=== PATIENT | female | born 1970 ===

== ENCOUNTER 2017-08-12 10:38 | Day surgery (SDC) | payer OTHER ==
[2017-08-05 07:49] VITALS: BMI 27.8
[2017-08-12 11:55] LABS: BASO # 0.02 [, K/mm3] (0.0-2.0); BASO % 0.4 % (0.0-3.0); BLOOD UREA NITROGEN 16 mg/dL (7-21); CALCIUM 9.2 mg/dL (8.4-10.5); EOS # 0.1 (0.0-0.7); GFR AFRICAN-AMERICAN > 60; GFR NON-AFRICAN AMERICAN > 60; GRAN # 2.9 (1.4-6.5); GRAN % 60.5 % (50.0-68.0); LYMPH # 1.5 (1.2-3.4); MEAN CELL VOLUME 66.5 fl (80.0-105.0); MEAN CORPUSCULAR HEMOGLOBIN 19.9 pg (25.0-35.0); MEAN CORPUSCULAR HGB CONC 29.9 g/dl (31.0-37.0); MEAN PLATELET VOLUME 8.6 fl (7.0-11.0); MONO # 0.3 (0.1-0.6); MONO % 7.1 % (1.0-6.0); RBC 4.03 [, 10^6/uL] (3.5-6.1); RED CELL DISTRIBUTION WIDTH 15.9 % (11.5-14.5); WHITE BLOOD COUNT 4.8 [, 10^3/ul] (4.5-11.0)
[2017-08-12 12:01] LABS: INR 0.99 (0.93-1.08); PARTIAL THROMBOPLASTIN TIME 28.7 Seconds (25.1-36.5); PROTHROMBIN TIME 11.3 SECONDS (9.4-12.5)
[2017-08-12] MEDS ORDERED: ceFAZolin 1 gm in NS 1 GM/100 ML BAG IVPB STA (12:04)
[2017-08-12] MEDS ORDERED: Iodixanol 320 MG/ML 200 ML BOTTLE IV ONE (13:15)
[2017-08-12] MEDS ORDERED: Iodixanol 320 mg/ml 150 ml Bottle IV ONE (13:15)
[2017-08-12] MEDS ORDERED: Midazolam 2 MG/2 ML VIAL ONE (13:27)
[2017-08-12] MEDS ORDERED: Iodixanol 320 MG/ML 100 ML BOTTLE IV ONE (14:40)
[2017-08-12] MEDS ORDERED: Oxycodone/Acetaminophen 5/325 mg Tab PO PRN (15:20)
[2017-08-12] MEDS ORDERED: HYDROmorphone 2 mg/ml ISec IVP PRN (15:23)
[2017-08-12] MEDS: Sodium Chloride 0.45% 1,000 ML IV SCH (17:00)
--- NOTE | 2017-08-12 19:39 | VASCULAR ---
PROCEDURE: Uterine fibroid embolization. CLINICAL HISTORY: Sub mucosal fibroid. Menorrhagia. Needs uterine artery embolization. PHYSICIAN(S): Zaheer Castañeda MD. TECHNIQUE: The relative risks and indications of the procedure were explained to the patient and consent obtained. The patient was hydrated and given antibiotics/Reglan/Toradol prior to the procedure. The patient was placed supine on the arteriogram table and the right groin prepped and draped usual sterile fashion. Conscious sedation and monitoring were provided throughout the procedure by a nurse. Via a right common femoral artery approach, a 5 Azerbaijani sheath was placed. Through the sheath and over a guidewire, a 5 Azerbaijani flush catheter was placed in the abdominal aorta at the level of the renal arteries. A PA DSA abdominal and pelvic arteriogram was performed. An angled Glidewire was advanced over the aortic bifurcation and placed in the left common femoral artery. A 5 Azerbaijani angled glide catheter was advanced over the bifurcation and placed selectively in the proximal left internal iliac artery. A DSA left internal iliac arteriogram was performed. Nitroglycerin in 250 mcg aliquots was given. Over an angled Glidewire the 5 Azerbaijani glide catheter was placed subselectively in the horizontal portion of the left uterine artery. A DSA left uterine arteriogram was performed. Next 1 syringe of Biospheres, 500 to 700 micron particles, were instilled with contrast into the left uterine artery under direct fluoroscopic observation. The endpoint of embolization was pruning of the neovascular branches to the uterus with very slow antegrade flow in the main left uterine artery. No significant off-target embolization was observed. Next exchange is made for a Benavides 2 catheter which was placed subselectively into the right internal iliac artery. A DSA right internal iliac arteriogram was performed. Once again nitroglycerin in 250 mcg aliquots was given. Over an angled Glidewire the Benavides 2 catheter was placed sub selectively in the origin of the right uterine artery. A DSA right uterine arteriogram was performed. Using coaxial technique, a high flow micro catheter was placed in the horizontal portion of the right uterine artery. Once again subselective embolization of the right uterine artery was performed with 1 syringe of Biospheres, 500 to 700 micron particles. The end point of embolization was pruning of the neovascular uterine branches and very slow antegrade flow in the main right uterine artery. Post embolization arteriograms were obtained. The sheath was removed and hemostasis obtained. The patient tolerated the procedure well. FINDINGS: There are 2 right renal arteries and a single left renal artery which are widely patent. The nephrograms are symmetric and normal. The visualized aorta and iliac arteries are patent and normal in appearance. The ovarian arteries are not demonstrated on the flush aortogram. The uterine arteries are slightly enlarged and tortuous. The right uterine artery appears to be the major supply to the submucosal fibroid. No obvious anomalous ovarian supply is seen to the fibroids. No significant occlusive disease is identified. IMPRESSION: 1. Successful bilateral uterine artery embolization for fibroids as described above.
[2017-08-12] MEDS: ceFAZolin 1 gm in NS 1 GM/100 ML BAG IVPB SCH (21:39)
[2017-08-13] MEDS: Sodium Chloride 0.45% 1,000 ML IV SCH ×2 (01:50→13:37)
[2017-08-13 06:29] VITALS: O2SAT 95
[2017-08-13] MEDS: Pantoprazole 40 mg EC Tab PO SCH ×2 (06:42→08:14)
[2017-08-13 08:22] LABS: MEAN CELL VOLUME 66.7 fl (80.0-105.0); MEAN CORPUSCULAR HEMOGLOBIN 19.9 pg (25.0-35.0); MEAN CORPUSCULAR HGB CONC 29.8 g/dl (31.0-37.0); MEAN PLATELET VOLUME 8.6 fl (7.0-11.0); RBC 3.87 [, 10^6/uL] (3.5-6.1); RED CELL DISTRIBUTION WIDTH 15.9 % (11.5-14.5); WHITE BLOOD COUNT 9.5 [, 10^3/ul] (4.5-11.0)
[2017-08-13 08:25] LABS: HEMOGLOBIN 7.7 g/dL (12.0-16.0)
[2017-08-13 08:33] LABS: BLOOD UREA NITROGEN 11 mg/dL (7-21); CALCIUM 8.6 mg/dL (8.4-10.5); GFR AFRICAN-AMERICAN > 60; GFR NON-AFRICAN AMERICAN > 60
[2017-08-13] MEDS: ceFAZolin 1 gm in NS 1 GM/100 ML BAG IVPB SCH (10:05)
[2017-08-13 12:51] VITALS: BP 133/80; PULSE 80; RESP 17; TEMP 98
== END 2017-08-13 15:11 | disposition home or self-care (01) ==
LOC: SDSVAS 10:38 → 2RSO 16:22 → SDSVAS 08-13 15:11
PROVIDERS: ATTEND Radiology Vascular & Interventional Radiology
DX: D25.0 Submucous leiomyoma of uterus (principal); N92.0 Excessive and frequent menstruation with regular cycle
CPT/HCPCS: 36247; 36415 ×2; 37243; 80048 ×2; 84703; 85025; 85027; 85610; 85730; 99152; 99153; C1760 ×2; C1769 ×4; C1887 ×3; C1894 ×2; C9113; J0690 ×2; J1170 ×2; J1885; J2060; J2250; J2405 ×2; J7030 ×2; Q9967

== ENCOUNTER 2017-11-24 09:32 | Emergency (ER) | payer OTHER ==
[2017-11-24 09:33] VITALS: BMI 27.8
[2017-11-24 09:45] VITALS: RESP 16
--- NOTE | 2017-11-24 10:33 | ED PDOC ---
Arrival/HPI - General Chief Complaint: Headache Time Seen by Provider: 11/24/17 10:28 Historian: Patient - History of Present Illness Narrative History of Present Illness (Text): 11/24/17 10:30 Pt is a 47 yr old female with PMH who presents to the ED with a right side facial tingling x 1 week. Pt states that she has a sudden onset of this sensation and noticed that when she was exposed to wind or cold, the right side of her face tightens; she has an associated headache that comes and goes. Denies trauma, recent travel, fever, change in balance, slurred speech difficulty swallowing, syncope, focal weakness, change in vision or hearing, chest pain, shortness of breath or any other complaints. Time/Duration: 1 week Symptom Onset: Sudden Symptom Course: Unchanged Quality: Other (tingling on right side of face) Severity Level: 1 Activities at Onset: Rest Context: Home Past Medical History - Provider Review Nursing Documentation Reviewed: Yes - Travel History Have you recently traveled outside [place] w/in the past 3 mons?: No - Infectious Disease Hx of Infectious Diseases: None - Cardiac Hx Pacemaker: No - Neurological Hx Paralysis: No - Hematological/Oncological Hx Blood Transfusions: Yes - Musculoskeletal/Rheumatological Hx Musculoskeletal Disorders: No - Psychiatric Hx Substance Use: No - Anesthesia Hx Anesthesia Reactions: No Hx Malignant Hyperthermia: No - Suicidal Assessment Feels Threatened In Home Enviroment: No Family/Social History - Physician Review Nursing Documentation Reviewed: Yes Family/Social History: Unknown Family HX Smoking Status: Never Smoked Hx Alcohol Use: Yes (OCCASIONAL WINE) Hx Substance Use: No Allergies/Home Meds Allergies/Adverse Reactions: Allergies No Known Allergies Allergy (Verified 08/05/17 07:49) Home Medications: Home Meds Medication Instructions Recorded Confirmed Docusate [Colace] 100 mg PO BID PRN 08/13/17 08/13/17 Granisetron [Sancuso] 1 mg TD BID PRN 08/13/17 08/13/17 oxyCODONE/Acetaminophen [Percocet 1 ea PO Q8 PRN 08/13/17 08/13/17 5/325 mg Tab] Review of Systems - Review of Systems Constitutional: Normal Eyes: Normal ENT: Normal Respiratory: Normal Cardiovascular: Normal Gastrointestinal: Normal Genitourinary Female: Normal Musculoskeletal: Normal Skin: Normal Neurological: Headache, Other (right side of face tingling) Endocrine: Normal Hemo/Lymphatic: Normal Psychiatric: Normal Physical Exam Vital Signs Reviewed: Yes Vital Signs Temp Pulse Resp BP Pulse Ox 11/24/17 12:20 97.8 F 66 16 110/62 97 11/24/17 09:33 98.5 F 92 H 16 146/89 99 Temperature: Afebrile Blood Pressure: Normal Pulse: Regular Respiratory Rate: Normal Appearance: Positive for: Well-Appearing, Non-Toxic, Comfortable Pain Distress: None Mental Status: Positive for: Alert and Oriented X 3 - Systems Exam Head: Present: Atraumatic, Normocephalic Pupils: Present: PERRL Extroacular Muscles: Present: EOMI Conjunctiva: Present: Normal Mouth: Present: Moist Mucous Membranes Neck: Present: Normal Range of Motion Respiratory/Chest: Present: Clear to Auscultation, Good Air Exchange. No: Respiratory Distress, Accessory Muscle Use Cardiovascular: Present: Regular Rate and Rhythm, Normal S1, S2. No: Murmurs Abdomen: No: Tenderness, Distention, Peritoneal Signs Back: Present: Normal Inspection Upper Extremity: Present: Normal Inspection. No: Cyanosis, Edema Lower Extremity: Present: Normal Inspection. No: Edema Neurological: Present: GCS=15, CN II-XII Intact, Speech Normal Skin: Present: Warm, Dry, Normal Color. No: Rashes Psychiatric: Present: Alert, Oriented x 3, Normal Insight, Normal Concentration Medical Decision Making ED Course and Treatment: 11/24/17 10:34 Impression Pt is a 47 yr old female with PMH who presents to the ED with a right side facial tingling x 1 week Neuro exam benign, no focal weakness or palsy or ptosis noted, Plan ua, cbc, cmp, head ct assess and dispo 11/24/17 11:20 Labs reveal Hb 8.9 and Hct 30.2; all other labs wnl Head CT-->Unremarkable 11/24/17 12:00 Discussed findings with Pt who mentioned that her H/H have been historically low and is supplementing with Iron and diet Advised to see PMD to f/u with Iron panel and B12 and TSH - Lab Interpretations Lab Results: 11/24/17 10:50 11/24/17 10:50 Lab Results 11/24/17 10:50: Sodium 140, Potassium 3.9, Chloride 105, Carbon Dioxide 25, Anion Gap 14, BUN 14, Creatinine 0.7, Est GFR ( Amer) > 60, Est GFR (Non- Af Amer) > 60, Random Glucose 89, Calcium 9.3, Total Bilirubin 0.1 L, AST 21, ALT 27, Alkaline Phosphatase 44, Total Protein 7.1, Albumin 4.2, Globulin 2.9, Albumin/Globulin Ratio 1.4 11/24/17 10:50: Urine Color Yellow, Urine Appearance Clear, Urine pH 6.0, Ur Specific [place] >= 1.030, Urine Protein Trace H, Urine Glucose (UA) Negative, Urine Ketones Negative, Urine Blood Negative, Urine Nitrate Negative, Urine Bilirubin Negative, Urine Urobilinogen 0.2, Ur Leukocyte Esterase Negative, Urine RBC 0 - 2, Urine WBC 1 - 3, Ur Epithelial Cells 4 - 5, Urine Bacteria Few 11/24/17 10:50: WBC 4.2 L D, RBC 4.72, Hgb 8.9 L, Hct 30.2 L, MCV 64.0 L, MCH 18.9 L, MCHC 29.5 L, RDW 19.5 H, Plt Count 419, MPV 9.0 - RAD Interpretation Narrative RAD Interpretations (Text): 11/24/17 11:59 PROCEDURE: CT HEAD WITHOUT CONTRAST. PROCEDURE: CT HEAD WITHOUT CONTRAST. HISTORY: headache COMPARISON: None available. TECHNIQUE: Axial computed tomography images were obtained through the head/brain without intravenous contrast. Radiation dose: Total exam DLP = 861 mGy-cm. This CT exam was performed using one or more of the following dose reduction techniques: Automated exposure control, adjustment of the mA and/or kV according to patient size, and/or use of iterative reconstruction technique. FINDINGS: HEMORRHAGE: No intracranial hemorrhage. BRAIN: No mass effect or edema. No atrophy or chronic microvascular ischemic changes. VENTRICLES: Unremarkable. No hydrocephalus. CALVARIUM: Unremarkable. PARANASAL SINUSES: Unremarkable as visualized. No significant inflammatory changes. MASTOID AIR CELLS: Unremarkable as visualized. No inflammatory changes. OTHER FINDINGS: None. IMPRESSION: No acute findings Radiology Orders: 11/24/17 10:35 HEAD W/O CONTRAST [CT] Stat Disposition/Present on Arrival - Present on Arrival Any Indicators Present on Arrival: Yes History of DVT/PE: No History of Uncontrolled Diabetes: No Urinary Catheter: No History of Decub. Ulcer: No History Surgical Site Infection Following: None - Disposition Have Diagnosis and Disposition been Completed?: Yes Diagnosis: Anemia, Headache Disposition: HOME/ ROUTINE Disposition Time: 12:04 Patient Plan: Discharge Condition: GOOD Discharge Instructions (ExitCare): Anemia Caused by Low Iron Additional Instructions: Malina, thank you for letting us take care of you today. Your provider was LUZ MARINA Nagy. You were treated for Anemia. The emergency medical care you received today was directed at your acute symptoms. If you were prescribed any medication , please fill it and take as directed. It may take several days for your symptoms to resolve. Return to the Emergency Department if your symptoms worsen , do not improve, or if you have any other problems. Please follow up with your Primary Doctor in the next few days to have B12, TSH, and Iron studies done Please contact your doctor or call one of the physicians/clinics you have been referred to that are listed on the Patient Visit Information form that is included in your discharge packet. Bring any paperwork you were given at discharge with you along with any medications you are taking to your follow up visit. Our treatment cannot replace ongoing medical care by a primary care provider (PCP) outside of the emergency department. Thank you for allowing the [facility] team to be part of your care today. If you had an X-Ray or CT scan: A Radiologist will review the ED reading if any change in treatment is needed we will contact you. If you had a blood, urine, or wound culture: It will take several days for the results, if any change in treatment is needed we will contact you. Referrals: Juan C Stover MD [Primary Care Provider] - Follow up with primary Forms: [employer] (French)
[2017-11-24 11:08] LABS: URINE BILIRUBIN NEGATIVE (NEGATIVE); URINE BLOOD NEGATIVE (NEGATIVE); URINE GLUCOSE (UA) NEGATIVE (NEGATIVE); URINE LEUKOCYTE ESTERASE NEGATIVE Leu/uL (NEGATIVE); URINE PROTEIN TRACE mg/dL (<30 mg/dL); URINE UROBILINOGEN 0.2 E.U./dL (<1 E.U./dL)
[2017-11-24 11:10] LABS: ALB/GLOB RATIO 1.4 (1.1-1.8); ALBUMIN 4.2 g/dL (3.0-4.8); ALT/SGPT 27 U/L (7-56); AST/SGOT 21 U/L (14-36); BLOOD UREA NITROGEN 14 mg/dL (7-21); CALCIUM 9.3 mg/dL (8.4-10.5); GFR AFRICAN-AMERICAN > 60; GFR NON-AFRICAN AMERICAN > 60; HEMOGLOBIN 8.9 g/dL (12.0-16.0); MEAN CORPUSCULAR HEMOGLOBIN 18.9 pg (25.0-35.0); MEAN CORPUSCULAR HGB CONC 29.5 g/dl (31.0-37.0); RBC 4.72 10^6/uL (3.5-6.1); RED CELL DISTRIBUTION WIDTH 19.5 % (11.5-14.5); WHITE BLOOD COUNT 4.2 10^3/ul (4.5-11.0)
[2017-11-24 11:13] LABS: URINE APPEARANCE CLEAR (CLEAR); URINE COLOR YELLOW (YELLOW)
[2017-11-24 11:23] LABS: URINE BACTERIA FEW (NEG); URINE RBC 0 - 2 /hpf (0-2)
--- NOTE | 2017-11-24 11:28 | CT ---
PROCEDURE: CT HEAD WITHOUT CONTRAST. HISTORY: headache COMPARISON: None available. TECHNIQUE: Axial computed tomography images were obtained through the head/brain without intravenous contrast. Radiation dose: Total exam DLP = 861 mGy-cm. This CT exam was performed using one or more of the following dose reduction techniques: Automated exposure control, adjustment of the mA and/or kV according to patient size, and/or use of iterative reconstruction technique. FINDINGS: HEMORRHAGE: No intracranial hemorrhage. BRAIN: No mass effect or edema. No atrophy or chronic microvascular ischemic changes. VENTRICLES: Unremarkable. No hydrocephalus. CALVARIUM: Unremarkable. PARANASAL SINUSES: Unremarkable as visualized. No significant inflammatory changes. MASTOID AIR CELLS: Unremarkable as visualized. No inflammatory changes. OTHER FINDINGS: None. IMPRESSION: No acute findings
[2017-11-24 13:11] VITALS: BP 110/62; PULSE 66; TEMP 97.8; O2SAT 97
== END 2017-11-24 12:20 | disposition home or self-care (01) ==
LOC: ED 09:32
DX: D64.9 Anemia, unspecified (principal); R51 Headache